=== PATIENT | female | born 1950 | race Caucasian/White ===

== ENCOUNTER → 2016-07-05 | Outpatient (CLI) | payer MEDICARE, BC ==
[~2016-07-05] MED LIST: ASPIRIN 81M81 MG/TA2 PO; ATIVAN 0.50.5 MG/TAB PO; B COMPLEX #11 TA1 PO; CALCIUM 500500 M1 PO; CELEXA40 MG PO; CENTRUM SILVER1 TA2 PO; CENTRUM SILVER1 TAB PO; CITALOPRAM40 MG PO; COLACE 100100 MG/CAP PO; COLACE-T100 MG PO; CURCUMIN PO; DESYREL 100MG100 MG PO; LIPITOR 40MG TA40 MG PO; MASON NATURAL1200 MG PO; MEGA D3 PO; NASACORT OTC NS; NATURAL MAGNES200 MG PO; NORCO 325 MG-7.1 TAB PO; NORTRIPTYLINE50 MG PO; OMEGA-3 FISH1200 MG PO; OMEPRAZOLE20 M1 PO; PROBIOTIC; SIMVASTATIN40 MG PO; THE MEDICINE S200 M2 PO; VITAMIN B COMPL1 TA1 PO; VITAMIN C500 MG PO; VITAMIN D1000 IU PO; VITAMINC1000TA PO; ZYRTEC 10MG10 MG PO; [UNRECOGNIZED DRUG - OTHER] PO
== END ==
LOC: MC.RAD 13:00
DX: D48.62 Neoplasm of uncertain behavior of left breast (principal); Z85.3 Personal history of malignant neoplasm of breast

== ENCOUNTER 2016-08-16 11:15 | Outpatient (RCR) | payer MEDICARE, BC | END 2016-08-29 | disposition home or self-care (01) | LOC: WSPT | DX: I89.0 Lymphedema, not elsewhere classified (principal); Z85.3 Personal history of malignant neoplasm of breast; Z92.3 Personal history of irradiation | CPT/HCPCS: G8984-GP; G8985-GP ==

== ENCOUNTER 2016-11-02 09:00 | Outpatient (RCR) | payer MEDICARE, BC | END 2016-11-10 07:58 | disposition still patient (30) | LOC: WSPT 09:00 | DX: I89.0 Lymphedema, not elsewhere classified (principal); C50.912 Malignant neoplasm of unspecified site of left female breast | CPT/HCPCS: G8985-GP; G8986-GP ==

== ENCOUNTER 2017-05-06 10:00 | Outpatient (RCR) | payer MEDICARE, BC | END 2017-05-06 10:05 | disposition still patient (30) | LOC: WSPT 10:00 | DX: I89.0 Lymphedema, not elsewhere classified (principal) | CPT/HCPCS: G8984-GP; G8985-GP; G8986-GP ==

== ENCOUNTER → 2017-07-06 | Outpatient (CLI) | payer MEDICARE, BC | LOC: MC.RAD 12:51 | DX: Z85.3 Personal history of malignant neoplasm of breast (principal); Z98.890 Other specified postprocedural states ==

== ENCOUNTER → 2018-07-10 | Outpatient (CLI) | payer MEDICARE, BC | LOC: MC.RAD 09:40 | DX: Z12.31 Encounter for screening mammogram for malignant neoplasm of breast (principal); C50.412 Malignant neoplasm of upper-outer quadrant of left female breast; Z98.890 Other specified postprocedural states; Z92.3 Personal history of irradiation ==

== ENCOUNTER 2019-01-01 15:15 | Outpatient (RCR) | payer MEDICARE, BC | END 2019-01-12 17:28 | disposition home or self-care (01) | LOC: WSPT 15:15 | DX: I89.0 Lymphedema, not elsewhere classified (principal) ==

== ENCOUNTER → 2019-07-13 | Outpatient (CLI) | payer MEDICARE, BC | LOC: MC.RAD 09:45 | DX: Z12.31 Encounter for screening mammogram for malignant neoplasm of breast (principal); Z85.3 Personal history of malignant neoplasm of breast; Z90.12 Acquired absence of left breast and nipple ==

== ENCOUNTER → 2020-02-05 | Outpatient (CLI) | payer MEDICARE, BC | LOC: ZCOL.LAB 18:35 | DX: Z20.828 Contact with and (suspected) exposure to other viral communicable diseases (principal) ==

== ENCOUNTER → 2020-07-14 | Outpatient (CLI) | payer MEDICARE, BC | LOC: MC.RAD | DX: Z12.31 Encounter for screening mammogram for malignant neoplasm of breast (principal); Z98.890 Other specified postprocedural states; Z98.82 Breast implant status ==

== ENCOUNTER → 2021-03-31 | Outpatient (CLI) | payer MEDICARE, BC | LOC: COL.RAD 14:38 | DX: Z12.2 Encounter for screening for malignant neoplasm of respiratory organs (principal); R91.8 Other nonspecific abnormal finding of lung field; Z87.891 Personal history of nicotine dependence ==

== ENCOUNTER → 2021-07-28 | Outpatient (CLI) | payer MEDICARE, BC | LOC: MC.RAD 07-15 10:00 | DX: Z12.31 Encounter for screening mammogram for malignant neoplasm of breast (principal); Z85.3 Personal history of malignant neoplasm of breast ==

== ENCOUNTER 2022-06-07 12:09 | Outpatient (RCR) | payer MEDICARE, BC ==
[~2022-06-07 12:09] MED LIST changes: +BRILINTA90 MG PO; +CELEBREX 200MG200 MG PO; +LIPITOR 80MG80 MG PO; +LYRICA 75MG CAP75 MG PO; +MAGNESIUM250 M1 PO; -NATURAL MAGNES200 MG PO; +NITROSTAT0.4 MG/TAB SL; +NORCO 325 MG-51 TAB PO; +PROBIOTIC ACID1 EAC3 PO; +PROTONIX 40MG T40 MG PO; +TOPROL XL 25MG25 MG PO; +VITAMIN B COMPL1 SGL PO; -VITAMINC1000TA PO; +VTAMINC250TA PO
== END 2022-06-08 | disposition home or self-care (01) ==
LOC: COL.CR
DX: Z48.812 Encounter for surgical aftercare following surgery on the circulatory system (principal); Z95.5 Presence of coronary angioplasty implant and graft

== ENCOUNTER 2022-07-05 11:34 | Outpatient (RCR) | payer MEDICARE, BC | END 2022-07-06 | disposition home or self-care (01) | LOC: COL.CR | DX: Z48.812 Encounter for surgical aftercare following surgery on the circulatory system (principal); Z95.5 Presence of coronary angioplasty implant and graft ==

== ENCOUNTER 2022-07-28 12:46 | Outpatient (RCR) | payer MEDICARE, BC | END 2022-08-06 | disposition home or self-care (01) | LOC: COL.CR | DX: Z48.812 Encounter for surgical aftercare following surgery on the circulatory system (principal); Z95.5 Presence of coronary angioplasty implant and graft ==

== ENCOUNTER → 2022-07-28 | Outpatient (CLI) | payer MEDICARE, BC | LOC: MC.RAD 11:26 | DX: Z12.31 Encounter for screening mammogram for malignant neoplasm of breast (principal); Z98.890 Other specified postprocedural states; Z85.3 Personal history of malignant neoplasm of breast; Z92.3 Personal history of irradiation ==

== ENCOUNTER 2022-08-30 15:39 | Outpatient (RCR) | payer MEDICARE, BC | END 2022-09-05 | disposition home or self-care (01) | LOC: COL.CR | DX: Z48.812 Encounter for surgical aftercare following surgery on the circulatory system (principal); Z95.5 Presence of coronary angioplasty implant and graft ==

== ENCOUNTER → 2023-06-29 | Outpatient (CLI) | payer MEDICARE ==
[~2023-06-29] MED LIST changes: +CHROMIUM PICOLI1 TA8; +ENTOCORT EC3 MG PO; +PLAVIX 75MG TAB75 MG PO; +VITAMIN B12 1541 TAB PO; +VITAMIN D 400400 IU PO
== END ==
LOC: COL.RAD 14:07
DX: Z12.2 Encounter for screening for malignant neoplasm of respiratory organs (principal); R91.8 Other nonspecific abnormal finding of lung field; F17.210 Nicotine dependence, cigarettes, uncomplicated

== ENCOUNTER → 2023-08-01 | Outpatient (CLI) | payer MEDICARE, BC | LOC: MC.RAD 09:57 | DX: Z12.31 Encounter for screening mammogram for malignant neoplasm of breast (principal) ==

== ENCOUNTER → 2023-10-19 | Outpatient (CLI) | payer MEDICARE, BC | LOC: DIA.ED 09:09 | DX: E11.59 Type 2 diabetes mellitus with other circulatory complications (principal); Z79.84 Long term (current) use of oral hypoglycemic drugs; E78.5 Hyperlipidemia, unspecified; I10 Essential (primary) hypertension | CPT/HCPCS: G0108 ==

== ENCOUNTER → 2023-11-02 | Outpatient (CLI) | payer MEDICARE, BC | LOC: DIA.ED 09:23 | DX: E11.59 Type 2 diabetes mellitus with other circulatory complications (principal); Z79.84 Long term (current) use of oral hypoglycemic drugs; I10 Essential (primary) hypertension; E78.5 Hyperlipidemia, unspecified ==

== ENCOUNTER → 2023-11-23 | Outpatient (CLI) | payer MEDICARE, BC | LOC: DIA.ED 05:12 | DX: E11.59 Type 2 diabetes mellitus with other circulatory complications (principal); Z79.84 Long term (current) use of oral hypoglycemic drugs; I10 Essential (primary) hypertension; E78.5 Hyperlipidemia, unspecified | CPT/HCPCS: G0108 ==

== ENCOUNTER → 2024-01-02 | Outpatient (CLI) | payer MEDICARE, BC | LOC: DIA.ED 08:19 | DX: E11.59 Type 2 diabetes mellitus with other circulatory complications (principal); E78.5 Hyperlipidemia, unspecified; I10 Essential (primary) hypertension | CPT/HCPCS: G0108 ==